=== PATIENT | male | born 1945 | race Caucasian/White ===

== ENCOUNTER → 2023-10-26 | Emergency (ER) | payer OTHER ==
[~2023-10-26] MED LIST: CYCLOBENZAPRINE 10 MG TAB ONE; HYDROCODONE/APAP 10/325 TAB ONE; HYDROCODONE/APAP 5/325 MG TAB ONE
--- OUTSIDE RECORDS SUMMARY | 2023-10-26 06:05 | XMS REPORT | Continuity of Care Document ---
Author Name Unknown Address [address] [place] [address] th[address] Address [address] [place] [address] 1 495 [place] [address] Care Team Providers Care Solar Sales Representative Name Role Phone TONEY ODOM Attending Clinician Unavailab le Encounters Start Date/Time End Date/Time Encounter Type Admission Type Attending Clinicians Care Facility Care Department Encounter ID Source 2023-10-19 11:39:56 2023-10-19 11:39:56 Outpatient [facility] [id number] Keaton Yoder 2023-10-11 16:00:00 2023-10-11 16:00:00 Outpatient TONEY ODOM [id number] Imelda Jaramillo Results Test Description Test Time Test Comments Results Result Co mments Source CULTURE, [id number] 08:37:20SPECIMEN NUMBER: [id number] CULTURE, URINE SPECIMEN NUMBER: [id number] SPECIMEN COMMENT: URINE SOURCE: URINE REPORT STATUS: FINAL FINAL REPORT: 10/21/2023 NO GROWTH AFTER 36 HOURS INCUBATIONPSA, TOTAL 2023-10-21 01:15:54* Test Item Value Reference Range Interpretation Comme nts PSA, TOTAL (test code = 2606) 2.14 NG/ML <=4.00 NOTE: Methodolog y is Foster Abbie Electrochemiluminescence Immunoassay traceable to WHO reference standard 96/760. UNLESS OTHERWISE INDICATED, ALL TESTING PERFORMED AT [facility] [address] [place] [id number] COUNTER INSTALLER: ALEJA SWEET M.D. CLIA NUMBER [id number] [place]. [id number] TSH, THIRD [id number] 01:15:54* Test Item Value Reference Range Interpretation Comme nts TSH, THIRD GENERATION (test code = 2821) 0.195 UIU/ML 0.400-4.100 L VITAMIN D, 25 [id number] 01:14:40* Test Item Value Reference Range Interpretation Comme nts VITAMIN D, 25 OH (test code = 4958) 26 NG/ML SEE BELOW L EFFECTIVE 2022, PLEASE NOTE NEW METHODOLOGY IS ELECTROCHEMILUMINESCENCE BINDING ASSAY. NOTE: 25-HYDROXYVITAMIN D ASSAY INCLUDES 25-HYDROXYVITAMIN D2 AND D3. INTERPRETIVE RANGES PEDIATRIC (<17 YEARS) . . . . . . . . . . . NG/ML 20-100ADULT: INSUFFICIENT . . . . . . . . . . . . . . NG/ML <20 SUBOPTIMAL . . . . . . . . . . . . . . . NG/ML 20-29 OPTIMAL . . . . . . . . . . . . . . . . . NG/ML 30-100 COMPREHENSIVE METABOLIC [id number] 01:02:57* Test Item Value Reference Range Interpretation Comme nts GLUCOSE (test code = 2216) 105 MG/DL 70-99 H BUN (test code = 2207) 12 MG/DL 8-23 CREATININE (test code = 2214) 0.55 MG/DL 0.80-1.40 L eGFR (2020 CKD-EPI) (test code = 85516) 100 ML/MIN/1.73 >60 CALC BUN/CREAT (test code = 2235) 22 RATIO 6-28 SODIUM (test code = 223) 143 MEQ/L 133-146 POTASSIUM (test code = 2228) 4.7 MEQ/L 3.5-5.4 CHLORIDE (test code = 2215) 101 MEQ/L 95-107 CARBON DIOXIDE (test code = 2206) 29 MEQ/L 19-31 CALCIUM (test code = 2209) 9.8 MG/DL 8.5-10.5 PROTEIN, TOTAL (test code = 2228) 7.3 G/DL 6.1-8.3 ALBUMIN (test code = 1) 4.3 G/DL 3.5-5.2 CALC GLOBULIN (test code = 2240) 3.0 G/DL 1.9-3.7 CALC A/G RATIO (test code = 223) 1.4 RATIO 1.0-2.6 BILIRUBIN, TOTAL (test code = 2206) 0.7 MG/DL <=1.2 ALKALINE PHOSPHATASE (test code = 2204) 62 U/L 40-125 AST (test code = 2218) 16 U/L 9-50 ALT (test code = 2219) 18 U/L 5-50 LIPID [id number] 01:02:57* Test Item Value Reference Range Interpretation Comme nts CHOLESTEROL (test code = 2210) 160 MG/DL <200 TRIGLYCERIDES (test code = 2232) 123 MG/DL <150 HDL CHOLESTEROL (test code = 2220) 51 MG/DL >39 CALC LDL CHOL (test code = 2237) 87 MG/DL <100 NOTE: CALCULATED LDL IS BASED ON VAHE-JENSEN METHOD WHICHINCLUDES ADJUSTABLE TRIGLYCERIDE:VLDL CHOLESTEROL RATIO.THIS FACTOR VARIES BY MEASURED TRIGLYCERIDE AND NON-HDLCHOLESTEROL CONCENTRATIONS WITH INCREASED CALCULATED LDL SEENIN HIGHER TRIGLYCERIDE OR LOWER NON-HDL SPECIMENS. FOR MOREINFORMATION, SEE CLIENT ANNOUNCEMENT AT [email or web address] RATIO LDL/HDL (test code = 2238) 1.71 RATIO <3.55 CBC W/AUTO DIFF WITH [id number] 10:26:31* Test Item Value Reference Range Interpretation Comme nts WBC (test code = 1001) 6.9 K/UL 3.5-11.0 RBC (test code = 1002) 4.64 M/UL 4.50-6.10 HEMOGLOBIN (test code = 1003) 14.7 G/DL 13.5-17.0 HEMATOCRIT (test code = 1004) 44.9 % 40.0-51.0 MCV (test code = 1005) 96.8 fL 80.0-99.0 MCH (test code = 1006) 31.7 PG 25.0-33.0 MCHC (test code = 1007) 32.7 G/DL 31.0-36.0 RDW (test code = 1038) 12.7 % 11.5-15.0 NEUTROPHILS (test code = 1008) 71.1 % LYMPHOCYTES (test code = 1010) 18.8 % MONOCYTES (test code = 1011) 6.6 % EOSINOPHILS (test code = 1012) 2.2 % BASOPHILS (test code = 1013) 1.0 % IMMATURE GRANULOCYTES (test code = 1036) 0.3 % NUCLEATED RBCS (test code = 1065) 0.0 /100 WBC'S See_Comment [Automated Oversia ge] The system which generated this result transmitted reference range: 0.0. The reference range was not used to interpret this result as normal/abnormal. PLATELET COUNT (test code = 1015) 205 K/UL 130-400 ABSOLUTE NEUTROPHILS (test code = 1066) 4.89 K/UL 1.50-7.50 ABSOLUTE LYMPHOCYTES (test code = 1067) 1.29 K/UL 1.00-4.00 ABSOLUTE MONOCYTES (test code = 1068) 0.45 K/UL 0.20-1.00 ABSOLUTE EOSINOPHILS (test code = 1040) 0.15 K/UL 0.00-0.50 ABSOLUTE BASOPHILS (test code = 1069) 0.07 K/UL 0.00-0.20 ABS IMMATURE GRANULOCYTES (test code = 1020) 0.02 K/UL 0.00-0.10 ABS NUCLEATED RBCS (test code = 82260) 0.00 K/UL 0.00-0.11
[2023-10-26 07:11] LABS: Absolute Lymphocytes (CBC) 1.5 K/uL (0.7-4.9); Hematocrit 41.3 % (39.6-49.0); Lymphocytes % 20.4 % (15.3-44.8); MCV 97.4 fL (80-100); MPV 9.4 fL (7.6-11.3); Platelets 188 thou/uL (152-406); RBC Red Blood Cell Count 4.24 M/uL (4.33-5.43)
[2023-10-26 07:24] LABS: Specific Gravity > 1.030 (1.005-1.030); Urine Bacteria <20 /HPF (<20); Urine Bilirubin NEGATIVE (Negative); Urine Blood Negative (Negative); Urine Clarity Clear (Clear); Urine Color Yellow (Yellow); Urine Glucose NEGATIVE (Negative); Urine Mucus 4+ /HPF (None Seen); Urine Protein 1+ (Negative); Urine RBC <5 /HPF (None Seen); Urine Urobilinogen 1+ (Normal); Urine pH 5.5 (5.0-7.0)
--- NOTE | 2023-10-26 08:20 | RAD REPORT ---
EXAM DESCRIPTION: CT - Abdomen Pelvis Wo Contrast - 10/26/2023 7:31 am CLINICAL HISTORY: Abdominal pain. back pain COMPARISON: No comparisons TECHNIQUE: CT imaging of the abdomen and pelvis was performed without contrast. Solid organ, bowel a nd vascular assessment is limited due to lack of IV and oral contrast. All CT scans are performed using dose optimization technique as appropriate and may include automated exposure control or mA/KV adjustment according to patient size. FINDINGS: The lower lung friend are clear.Small hiatal hernia. The liver, spleen, pancreas, adrenal glands and kidneys are within normal limits for a limited non-co ntrast examination. No bowel obstruction, free air, free fluid or abscess. Moderate stool is present throughout the colon . The appendix is not identified as a discrete structure, however, no secondary findings of appendici tis are identified. Small fat containing umbilical hernia. Moderate lumbar degenerative changes are present. 6 mm degenerative anterolisthesis of L4 on 5 is pre sent. IMPRESSION: No acute intra-abdominal or pelvic findings. Moderate multilevel lumbar degenerative changes. A limited non-contrast examination was performed as detailed.
[2023-10-26 10:21] LABS: Albumin 3.4 g/dL (3.4-5.0); Bilirubin Total 0.6 mg/dL (0.2-1.0); Potassium 4.1 mEq/L (3.5-5.1); Protein, Total 7.3 g/dL (6.4-8.2)
--- NOTE | 2023-10-26 10:33 | ER ---
Nurse's Notes [facility] Name: Ham Bull Age: 78 yrs Sex: Male : 1945 Arrival Date: 10/26/2023 Time: 06:02 Bed 14 Private MD: Diagnosis: Low back pain Presentation: 10/26 06:20 Chief complaint: Patient states: left lower back pain of 10, worse when laying,onset pf1 this AM. Patient denies any back injury. 06:20 Coronavirus screen: Vaccine status: Patient reports receiving the 2nd dose of the covid pf1 vaccine. Client denies travel out of the [place] in the last 14 days. At this time, the client does not indicate any symptoms associated with coronavirus-19. Ebola Screen: Patient negative for fever greater than or equal to 101.5 degrees Fahrenheit, and additional compatible Ebola Virus Disease symptoms. Initial Sepsis Screen: Does the patient meet any 2 criteria? No. Patient's initial sepsis screen is negative. Does the patient have a suspected source of infection? No. Patient's initial sepsis screen is negative. Risk Assessment: Do you want to hurt yourself or someone else? Patient reports no desire to harm self or others. 06:20 Method Of Arrival: Wheelchair pf1 06:20 Acuity: SHERRY 3 pf1 Historical: - Allergies: 06:35 No Known Allergies; pf1 - PMHx: 06:35 Hypertensive disorder; Atrial fibrillation; Arthritis; back pain; pf1 - PSHx: 06:35 left shoulder; pf1 - Immunization history:: Adult Immunizations up to date, Client reports receiving the 2nd dose of the Covid vaccine, Moderna Last tetanus immunization: < 5 years ago Flu vaccine is not up to date. - Social history:: Smoking status: Patient denies any tobacco usage or history of. Patient/guardian denies using alcohol, street drugs. - Family history:: not pertinent. Screenin:59 [facility] ED Fall Risk Assessment (Adult) History of falling in the last 3 months, nw1 including since admission No falls in past 3 months (0 pts) Confusion or Disorientation No (0 pts) Intoxicated or Sedated No (0 pts) Impaired Gait No (0 pts) Mobility Assist Device Used No (0 pt) Altered Elimination No (0 pt) Score/Fall Risk Level 0 - 2 = Low Risk Oriented to surroundings, Maintained a safe environment, Educated pt \\T\\ family on fall prevention, incl call for assistance when getting out of bed, Assessed \\T\\ reinforced patient's understanding of fall precautions, Provided non-skid footwear, Hourly rounding (assess needs \\T\\ fall precautionary measures) done, Used ambulatory aids as needed (educated on \\T\\ assisted with). Abuse screen: Denies threats or abuse. Denies injuries from another. Nutritional screening: No deficits noted. Tuberculosis screening: No symptoms or risk factors identified. Assessment: 06:59 Reassessment: Pt states lower left back pain since this morning. Pt states that he has nw1 chronic pain and was told that he needs an MRI, but this morning the pain was unbearable. Pain is relieved by positioning. Pt currently in chair in room. General: Appears in no apparent distress. uncomfortable, Behavior is calm, cooperative, appropriate for age. Pain: Complains of pain in left low back. Neuro: Level of Consciousness is awake, alert, obeys commands, Oriented to person, place, time, situation, Appropriate for age. Cardiovascular: Reports None. Respiratory: No deficits noted. Airway is patent Trachea midline Respiratory effort is even, unlabored, Respiratory pattern is regular, symmetrical. GI:. : Urine is joanie. Derm: No deficits noted. No signs and/or symptoms reported regarding the dermatologic system. Musculoskeletal: No signs and/or symptoms reported regarding the musculoskeletal system. Reports pain in left low back since "this morning". 07:05 Reassessment: Patient appears in no apparent distress at this time. Patient and/or db family updated on plan of care and expected duration. Pain level reassessed. Patient is alert, oriented x 3, equal unlabored respirations, skin warm/dry/pink. SITTING IN CHAIR AT SHIFT CHANGE IN NAD. STATES BED HURTS BACK MORE. General: Appears in no apparent distress. comfortable, Behavior is calm, cooperative. 08:00 Reassessment: Patient appears in no apparent distress at this time. Patient and/or db family updated on plan of care and expected duration. Pain level reassessed. Patient is alert, oriented x 3, equal unlabored respirations, skin warm/dry/pink. 09:00 Reassessment: Patient appears in no apparent distress at this time. Patient and/or db family updated on plan of care and expected duration. Pain level reassessed. Patient is alert, oriented x 3, equal unlabored respirations, skin warm/dry/pink. 10:00 Reassessment: Patient appears in no apparent distress at this time. Patient and/or db family updated on plan of care and expected duration. Pain level reassessed. Patient is alert, oriented x 3, equal unlabored respirations, skin warm/dry/pink. 11:54 Reassessment: Patient appears in no apparent distress at this time. Patient and/or db family updated on plan of care and expected duration. Pain level reassessed. Patient is alert, oriented x 3, equal unlabored respirations, skin warm/dry/pink. Vital Signs: 06:20 BP 120 / 86; Pulse 72; Resp 16; Temp 98.4; Pulse Ox 97% on R/A; Weight 111.13 kg; pf1 Height 5 ft. 6 in. ; Pain 10/10; 06:59 BP 114 / 67; Pulse 70; Resp 18; Pulse Ox 94% on R/A; nw1 07:15 BP 121 / 73; Pulse 68; Resp 18; Pulse Ox 98% on R/A; db 09:57 Pulse 72; Resp 16; Pulse Ox 93% ; mb4 10:29 BP 121 / 73 LA Standing (auto/); Pulse 72; Resp 16 S; Pulse Ox 94% ; mb4 11:15 BP 128 / 68; Pulse 63; Resp 18; Pulse Ox 97% on R/A; db 06:20 Body Mass Index 39.54 (111.13 kg, 167.64 cm) pf1 06:20 Pain Scale: Adult pf1 Mike Coma Score: 06:59 Eye Response: spontaneous(4). Motor Response: obeys commands(6). Verbal Response: nw1 oriented(5). Total: 15. ED Course: 06:14 Patient arrived in ED. gm2 06:16 Pedro Vasquez MD is Attending Physician. rt 06:35 Triage completed. pf1 06:37 Rubi Dobson, JT is Primary Nurse. nw1 06:59 Bed in low position. Call light in reach. Side rails up X2. Provided Education on: POC. nw1 Door closed. 06:59 Pulse ox on. NIBP on. nw1 06:59 No provider procedures requiring assistance completed. Inserted saline lock: 20 gauge nw1 in right wrist, using aseptic technique. Blood collected. 07:05 CMP Sent. nw1 07:05 CBC with Diff Sent. nw1 07:05 [facility] Sent. nw1 07:13 Attending Physician role handed off by Pedro Vasquez MD ec2 07:13 Stef West MD is Attending Physician. ec2 07:33 CT Abd/Pelvis - Without Contrast In Process Unspecified. EDMS 07:57 Lab(s) recollected, by me, sent to lab. mb4 09:40 Lab(s) recollected, by me, sent to lab. mb4 11:50 Patient did not have IV access during this emergency room visit. db Administered Medications: 07:09 Drug: Cyclobenzaprine PO 10 mg PO once Route: PO; nw1 11:56 Follow up: Response: No adverse reaction db 07:09 Drug: [place] PO 10 mg-325 mg 1 tabs PO once Route: PO; nw1 11:56 Follow up: Response: No adverse reaction db 11:32 Drug: HYDROcodone-acetaminophen PO 5 mg-325 mg 2 tabs PO once Route: PO; db 11:56 Follow up: Response: No adverse reaction db Medication: 06:59 VIS not applicable for this client. nw1 Outcome: 10:32 Discharge ordered by . ec2 11:50 Discharged to home via wheelchair, with family, db 11:50 Condition: stable 11:50 Discharge instructions given to patient, Instructed on discharge instructions, follow up and referral plans. Prescriptions given X 1, 11:57 Patient left the ED. db Signatures: Dispatcher [employer] EDSherin Naranjo mb4 Laure Richards, JT RN db Pedro Vasquez MD MD rt Fanny Melgar RN RN pf1 Stef West MD MD ec2 Zuly Quan 2 Rubi Dobson, JT RN nw1 Corrections: (The following items were deleted from the chart) 07:04 06:59 Client placed on continuous cardiac and pulse oximetry monitoring. NIBP nw1 monitoring applied. equipment monitor phototypesetting on. nw1
--- NOTE | 2023-10-26 10:33 | EDPHYS ---
Physician Documentation [facility] Name: Ham Bull Age: 78 yrs Sex: Male : 1945 Arrival Date: 10/26/2023 Time: 06:02 Bed 14 Private MD: ED Physician Stef West HPI: 10/26 07:05 This 78 yrs old Male presents to ER via Wheelchair with complaints of Low Back Pain. rt 07:05 Patient presents to the ED with about 3 days of a left lower back pain. It is not rt radiating. It is worse when he lies down flat. Patient denies discrete injury. States that the symptoms have worsened overnight. Denies other acute complaints, symptoms are moderate in severity, no other aggravating elevating factors.. Historical: - Allergies: 06:35 No Known Allergies; pf1 - PMHx: 06:35 Hypertensive disorder; Atrial fibrillation; Arthritis; back pain; pf1 - PSHx: 06:35 left shoulder; pf1 - Immunization history:: Adult Immunizations up to date, Client reports receiving the 2nd dose of the Covid vaccine, Moderna Last tetanus immunization: < 5 years ago Flu vaccine is not up to date. - Social history:: Smoking status: Patient denies any tobacco usage or history of. Patient/guardian denies using alcohol, street drugs. - Family history:: not pertinent. ROS: 07:05 Constitutional: Negative for fever, chills, and weight loss, Cardiovascular: Negative rt for chest pain, palpitations, and edema, Respiratory: Negative for shortness of breath, cough, wheezing, and pleuritic chest pain, Abdomen/GI: Negative for abdominal pain, nausea, vomiting, diarrhea, and constipation, MS/Extremity: Negative for injury and deformity, Skin: Negative for injury, rash, and discoloration, Neuro: Negative for headache, weakness, numbness, tingling, and seizure, 07:05 Back: Positive for decreased range of motion, pain at rest, Exam: 07:05 Constitutional: This is a well developed, well nourished patient who is awake, alert, rt and in no acute distress. Head/Face: Normocephalic, atraumatic. Chest/axilla: Normal chest wall appearance and motion. Nontender with no deformity. No lesions are appreciated. Cardiovascular: Regular rate and rhythm with a normal S1 and S2. No gallops, murmurs, or rubs. Normal PMI, no JVD. No pulse deficits. Respiratory: Lungs have equal breath sounds bilaterally, clear to auscultation and percussion. No rales, rhonchi or wheezes noted. No increased work of breathing, no retractions or nasal flaring. Abdomen/GI: Soft, non-tender, with normal bowel sounds. No distension or tympany. No guarding or rebound. No evidence of tenderness throughout. Skin: Warm, dry with normal turgor. Normal color with no rashes, no lesions, and no evidence of cellulitis. MS/ Extremity: Pulses equal, no cyanosis. Neurovascular intact. Full, normal range of motion. Neuro: Awake and alert, GCS 15, oriented to person, place, time, and situation. Cranial nerves II-XII grossly intact. Motor strength 5/5 in all extremities. Sensory grossly intact. Cerebellar exam normal. Normal gait. Psych: Awake, alert, with orientation to person, place and time. Behavior, mood, and affect are within normal limits. 07:05 Back: Tenderness to the left lower lumbar region, no midline tenderness, no step-offs, no costovertebral angle tenderness, Vital Signs: 06:20 BP 120 / 86; Pulse 72; Resp 16; Temp 98.4; Pulse Ox 97% on R/A; Weight 111.13 kg; pf1 Height 5 ft. 6 in. ; Pain 10/10; 06:59 BP 114 / 67; Pulse 70; Resp 18; Pulse Ox 94% on R/A; nw1 07:15 BP 121 / 73; Pulse 68; Resp 18; Pulse Ox 98% on R/A; db 09:57 Pulse 72; Resp 16; Pulse Ox 93% ; mb4 10:29 BP 121 / 73 LA Standing (auto/); Pulse 72; Resp 16 S; Pulse Ox 94% ; mb4 11:15 BP 128 / 68; Pulse 63; Resp 18; Pulse Ox 97% on R/A; db 06:20 Body Mass Index 39.54 (111.13 kg, 167.64 cm) pf1 06:20 Pain Scale: Adult pf1 [place] Coma Score: 06:59 Eye Response: spontaneous(4). Motor Response: obeys commands(6). Verbal Response: nw1 oriented(5). Total: 15. MDM: 06:26 Patient medically screened. rt 07:26 Data reviewed: vital signs. ec2 07:27 ED course: Patient's imaging was reviewed physician, in brief patient arrives today for ec2 low back pain, plan is to follow-up lab work and CT imaging. Currently considering MSK pain versus ureteral stone. Patient given Flexeril as well as [place] for pain management. Urine is pertinent for trace ketones, no blood present. CBC is reassuring. Pending metabolic profile and CT imaging.. 08:25 ED course: CT imaging shows no acute intra-abdominal process, shows degenerative ec2 changes.. 10:28 ED course: Metabolic profile is reassuring. Will discharge home with scheduled her back ec2 pain and have him follow-up with a primary care doctor. Return precautions given.. 10/26 06:38 Order name: [facility]; Complete Time: 07:27 rt 10/26 06:38 Order name: CBC with Diff; Complete Time: 07:13 rt 10/26 06:38 Order name: CMP; Complete Time: 10:27 rt 10/26 06:38 Order name: CT Abd/Pelvis - Without Contrast; Complete Time: 08:25 rt 10/26 07:30 Order name: Labs - recollect needed: recollect green top; Complete Time: 08:17 eb 10/26 08:37 Order name: Labs - recollect needed: recollect the recollect/ per Champ hemolyzed; eb Complete Time: 10:00 Administered Medications: 07:09 Drug: Cyclobenzaprine PO 10 mg PO once Route: PO; nw1 11:56 Follow up: Response: No adverse reaction db 07:09 Drug: [place] PO 10 mg-325 mg 1 tabs PO once Route: PO; nw1 11:56 Follow up: Response: No adverse reaction db 11:32 Drug: HYDROcodone-acetaminophen PO 5 mg-325 mg 2 tabs PO once Route: PO; db 11:56 Follow up: Response: No adverse reaction db Disposition Summary: 10/26/23 10:32 Discharge Ordered Notes: Location: Home ec2 Condition: Stable ec2 Diagnosis - Low back pain ec2 Followup: ec2 - With: Private Physician - When: - Reason: Recheck today's complaints Discharge Instructions: - Discharge Summary Sheet ec2 - Acute Back Pain, Adult ec2 Forms: - Medication Reconciliation Form ec2 - Thank You Letter ec2 - Antibiotic Education ec2 - Prescription Opioid Use ec2 - Patient Portal Instructions ec2 - Leadership Thank You Letter ec2 Prescriptions: - acetaminophen-codeine 300-15 mg Oral tablet - take 1 tablet ORAL route every 6 hours as needed for pain; 15 tablet; Refills: ec2 0, Product Selection Permitted Signatures: Dispatcher [employer] EDKatie Thakkar Danielle, RN RN db Pedro Vasquez MD MD rt Fanny Melgar RN RN pf1 Stef West MD MD ec2 Rubi Dobson RN RN nw1
[2023-10-26 13:10] VITALS: TEMP 98.4
[2023-10-26 13:21] VITALS: BP 128/68; O2SAT 97
== END ==
LOC: ER 06:02
DX: M54.50 Low back pain, unspecified (principal); I10 Essential (primary) hypertension
CPT/HCPCS: 36415; 74176; 80053; 81001; 85025; 99284

== ENCOUNTER 2024-04-06 15:35 | Inpatient (IN) | payer OTHER ==
[2024-04-06 17:27] LABS: Absolute Basophils 0.1 K/uL (0-0.5); Absolute Eosinophils 0.1 K/uL (0-0.5); Absolute Lymphocytes (CBC) 1.5 K/uL (0.7-4.9); Absolute Monocytes 0.6 K/uL (0.1-1.3); Absolute Neutrophil 4.7 K/uL (1.8-8.0); Eosinophils % 1.7 % (0-4.4); Hematocrit 43.6 % (39.6-49.0); Hemoglobin 13.9 g/dL (13.6-17.9); Lymphocytes % 21.4 % (15.3-44.8); MCH 32.5 pg (27.0-35.0); MCHC 31.9 g/dL (32.0-36.0); MCV 101.9 fL (80-100); MPV 9.4 fL (7.6-11.3); Monocytes % 8.1 % (3.3-12.3); Neutrophils % 67.8 % (41.7-73.7); Platelets 155 thou/uL (152-406); RBC Red Blood Cell Count 4.28 M/uL (4.33-5.43); Red Cell Distribution Width 15.5 % (12.1-15.2)
[2024-04-06 17:43] LABS: Anion Gap 5.4 mEq/L (5.0-15.0); Potassium 4.4 mEq/L (3.5-5.1)
[2024-04-06 17:54] LABS: Troponin High Sensitivity 62.9 pg/mL (<58.9)
--- NOTE | 2024-04-06 18:06 | ER ---
Nurse's Notes [facility] Name: Ham Bull Age: 78 yrs Sex: Male : 1945 Arrival Date: 04/06/2024 Time: 15:35 Bed 8 Private MD: Diagnosis: NSTEMI;Dyspnea, unspecified Presentation: 04/06 15:46 Chief complaint: Patient states: SOB x 2 days ago, pt also c/o nasal congestion. Pt aa5 denies cough. Coronavirus screen: shortness of breath. Ebola Screen: Patient denies travel to an Ebola-affected area in the 21 days before illness onset. Initial Sepsis Screen: Does the patient meet any 2 criteria? No. Patient's initial sepsis screen is negative. Does the patient have a suspected source of infection? No. Patient's initial sepsis screen is negative. Risk Assessment: Do you want to hurt yourself or someone else? Patient reports no desire to harm self or others. Onset of symptoms was March 2024. 15:46 Acuity: SHERRY 3 aa5 15:46 Method Of Arrival: Ambulatory aa5 Triage Assessment: 19:35 Respiratory: Onset: The symptoms/episode began/occurred. lc8 19:35 Respiratory: lc8 Historical: - Allergies: 15:46 No Known Allergies; aa5 - PMHx: 15:46 Arthritis; Atrial fibrillation; Back pain; Hypertensive disorder; aa5 - PSHx: 15:46 left shoulder; aa5 - Immunization history:: Adult Immunizations unknown. - Infectious Disease History:: Denies. - Social history:: Smoking status: Patient denies any tobacco usage or history of. Screenin:23 [facility] ED Fall Risk Assessment (Adult) History of falling in the last 3 months, ld1 including since admission No falls in past 3 months (0 pts). Abuse screen: Denies threats or abuse. Denies injuries from another. Nutritional screening: No deficits noted. Tuberculosis screening: No symptoms or risk factors identified. Assessment: 18:21 General: Appears in no apparent distress. comfortable, Behavior is calm, cooperative, ld1 appropriate for age. Pain: Denies pain. Neuro: Level of Consciousness is awake, alert, obeys commands, Oriented to person, place, time, situation. Cardiovascular: Capillary refill < 3 seconds Patient's skin is warm and dry. Rhythm is sinus bradycardia. Respiratory: Reports shortness of breath at rest on exertion Airway is patent Respiratory effort is even, labored. Respiratory: GI: Abdomen is round non-distended. : No signs and/or symptoms were reported regarding the genitourinary system. EENT: No signs and/or symptoms were reported regarding the EENT system. Derm: No signs and/or symptoms reported regarding the dermatologic system. Musculoskeletal: No signs and/or symptoms reported regarding the musculoskeletal system. 19:32 Reassessment: No changes from previously documented assessment. Patient and/or family lc8 updated on plan of care and expected duration. Pain level reassessed. 19:34 General: Appears comfortable, Behavior is calm, cooperative. Respiratory: Reports lc8 shortness of breath Airway is patent Respiratory effort is even, labored. GI: No deficits noted. Patient currently denies. : No signs and/or symptoms were reported regarding the genitourinary system. 20:30 Reassessment: No changes from previously documented assessment. Patient and/or family lc8 updated on plan of care and expected duration. Pain level reassessed. 21:30 Reassessment: No changes from previously documented assessment. Patient and/or family lc8 updated on plan of care and expected duration. Pain level reassessed. Vital Signs: 15:46 BP 156 / 94; Pulse 55; Resp 20 S; Temp 97.5; Pulse Ox 97% on R/A; Weight 113.4 kg (R); aa5 Height 5 ft. 6 in. (R); 18:21 BP 181 / 85; Pulse 55; Resp 22; Pulse Ox 92% on R/A; ld1 20:00 BP 172 / 69; Pulse 54; Resp 19; Pulse Ox 96% on 2 lpm NC; lc8 21:00 BP 128 / 59; Pulse 50; Pulse Ox 97% ; lc8 15:46 Body Mass Index 40.35 (113.40 kg, 167.64 cm) aa5 ED Course: 15:41 Patient arrived in ED. im 15:43 John Souza PA is PHCP. cp 15:46 Arm band placed on. aa5 15:47 Triage completed. aa5 15:51 Stef West MD is Attending Physician. ec2 15:51 EKG completed in triage. Results shown to MD. aa5 16:25 XRAY Chest (1 view) In Process Unspecified. EDMS 17:16 Basic Metabolic Panel Sent. bc6 17:16 CBC with Diff Sent. bc6 17:16 NT PRO-BNP Sent. bc6 17:16 Troponin HS Sent. bc6 17:16 Initial lab(s) drawn, by me, sent to lab. Inserted saline lock: 22 gauge in right bc6 antecubital area, using aseptic technique. Blood collected. 18:06 Ulises Self MD is Hospitalizing Provider. ec2 18:19 Tianna Saba, RN is Primary Nurse. ld1 18:23 Patient has correct armband on for positive identification. Placed in gown. Bed in low ld1 position. Call light in reach. Side rails up X2. potline monitor on. Pulse ox on. NIBP on. Door closed. Noise minimized. Warm blanket given. 18:23 No provider procedures requiring assistance completed. ld1 04/07 01:56 Provided Education on: admission. lc8 01:56 Patient admitted, IV remains in place. lc8 Administered Medications: 04/06 18:20 Drug: Aspirin PO Chewable Tablet 324 mg PO once; 81 mg tablets x 4 Route: PO; ld1 18:20 Drug: Enoxaparin Sub-Q 1 mg/kg Sub-Q once Route: Sub-Q; Site: right upper arm; ld1 Medication: 19:36 VIS not applicable for this client. lc8 Output: 20:00 Urine: 800ml (Voided); Total: 800ml. lc8 Outcome: 18:06 Decision to Hospitalize by Provider. ec2 04/07 01:56 Admitted to Med/surg accompanied by nurse, via wheelchair, room 215, lc8 Condition: stable Discharge instructions given to Instructed on the need for admit, 01:57 Patient left the ED. lc8 Signatures: Dispatcher [employer] EDMS Alicia Jack, RN RN aa5 John Souza PA PA cp Tianna Saba, JT RN ld1 Gill Ballard 6 Torie Sims Edwin, MD MD ec2 Renee Ross RN RN lc8
--- NOTE | 2024-04-06 18:07 | EDPHYS ---
Physician Documentation [facility] Name: Ham Bull Age: 78 yrs Sex: Male : 1945 Arrival Date: 04/06/2024 Time: 15:35 Bed 8 Private MD: ED Physician Stef West HPI: 04/06 15:55 This 78 yrs old Male presents to ER via Ambulatory with complaints of ec2 Shortness Of Breath. 15:55 Patient arrives today for evaluation of shortness of breath. Patient reports several ec2 days of shortness of breath is been progressively worse. Reports occasional cough, nonproductive, no fevers or chills, no nausea or vomiting. Does also complain of lower extremity edema bilaterally. Denies history of CHF, ACS. Reports history of atrial fibrillation, is on blood thinners.. Historical: - Allergies: 15:46 No Known Allergies; aa5 - PMHx: 15:46 Arthritis; Atrial fibrillation; Back pain; Hypertensive disorder; aa5 - PSHx: 15:46 left shoulder; aa5 - Immunization history:: Adult Immunizations unknown. - Infectious Disease History:: Denies. - Social history:: Smoking status: Patient denies any tobacco usage or history of. ROS: 15:55 Constitutional: as per hpi ec2 Exam: 15:55 Constitutional: GEN: NAD Head: atraumatic Eyes: EOMI Ears: External ears are ec2 normal. CV: regular rate, trace lower extremity edema LUNGS: no respiratory distress, no wheezes, rales, rhonchi ABD: non-distended SKIN: no evidence of rashes MSK: no evidence of trauma NEURO: moves all extremities equally Vital Signs: 15:46 BP 156 / 94; Pulse 55; Resp 20 S; Temp 97.5; Pulse Ox 97% on R/A; Weight 113.4 kg (R); aa5 Height 5 ft. 6 in. (R); 18:21 BP 181 / 85; Pulse 55; Resp 22; Pulse Ox 92% on R/A; ld1 20:00 BP 172 / 69; Pulse 54; Resp 19; Pulse Ox 96% on 2 lpm NC; lc8 21:00 BP 128 / 59; Pulse 50; Pulse Ox 97% ; lc8 15:46 Body Mass Index 40.35 (113.40 kg, 167.64 cm) aa5 MDM: 15:51 Patient medically screened. ec2 15:55 Data reviewed: vital signs. ED course: Patient arrives today for progressive shortness ec2 of breath. Examination remarkable for well-appearing nontoxic vigorous otherwise in no acute respiratory distress he does have trace lower extremity edema noted on physical examination. EKG obtained, independently reviewed and interpreted by me, shows normal sinus rhythm, rate of 48, no acute ST segment ovation's, intervals are nonactionable. Will obtain lab work, chest x-ray. Differential diagnosis includes ACS, volume overload, infection. . 18:05 ED course: Metabolic profile reassuring. CBC nonactionable, troponin is elevated at ec2 62.9. BNP within normal ranges at 97. Given the patient is having active shortness of breath with an elevated troponin, will admit the patient for an NSTEMI will give the patient aspirin, Lovenox and admit for further cardiac evaluation. Discussed case with the hospitalist, pending admission. . 18:06 ED course: MDM: Differential diagnosis as documented above in ED course; All lab tests ec2 ordered and reviewed as documented above; Independent interpretation of tests: EKG as above; External records reviewed: Previous ED visit Discuss inpatient hospitalization: Yes; I discussed the case with: Hospitalist . 04/06 15:55 Order name: Basic Metabolic Panel; Complete Time: 18:04 ec2 04/06 15:55 Order name: CBC with Diff; Complete Time: 18:04 ec2 04/06 15:55 Order name: NT PRO-BNP; Complete Time: 18:04 ec2 04/06 15:55 Order name: Troponin HS; Complete Time: 18:04 ec2 04/06 18:52 Order name: Urinalysis w/ reflexes EDPA 04/06 18:52 Order name: CBC with Automated Diff EDMS 04/06 18:52 Order name: CBC with Automated Diff; Complete Time: 06:39 EDMS 04/06 18:52 Order name: Comprehensive Metabolic Panel EDPA 04/06 18:52 Order name: Comprehensive Metabolic Panel; Complete Time: 06:39 EDMS 04/06 18:52 Order name: Troponin High Sensitivity EDMS 04/06 18:52 Order name: Troponin High Sensitivity; Complete Time: 06:39 EDMS 04/06 18:52 Order name: Troponin High Sensitivity; Complete Time: 06:39 EDMS 04/06 18:52 Order name: Troponin High Sensitivity EDMS 04/06 15:55 Order name: XRAY Chest (1 view); Complete Time: 06:39 ec2 04/06 18:53 Order name: Echo with Doppler EDMS 04/06 15:55 Order name: EKG; Complete Time: 15:56 ec2 04/06 18:52 Order name: CONS Physician Consult EDMS 04/06 15:55 Order name: Cardiac monitoring; Complete Time: 18:20 ec2 04/06 15:55 Order name: EKG - Nurse/Tech; Complete Time: 16:28 ec2 04/06 15:55 Order name: IV Saline Lock; Complete Time: 17:16 ec2 04/06 15:55 Order name: Labs collected and sent; Complete Time: 17:16 ec2 04/06 15:55 Order name: O2 Per Protocol; Complete Time: 18:13 ec2 04/06 15:55 Order name: O2 Sat Monitoring; Complete Time: 18:13 ec2 Administered Medications: 18:20 Drug: Aspirin PO Chewable Tablet 324 mg PO once; 81 mg tablets x 4 Route: PO; ld1 18:20 Drug: Enoxaparin Sub-Q 1 mg/kg Sub-Q once Route: Sub-Q; Site: right upper arm; ld1 Disposition Summary: 04/06/24 18:06 Hospitalization Ordered Notes: Hospitalization Status: Inpatient Admission ec2 Provider: Ulises Self ec2 Location: Telemetry/MedSurg (Inpatient) ec2 Condition: Stable ec2 Problem: new ec2 Symptoms: have improved ec2 Bed/Room Type: Standard ec2 Room Assignment: 215(04/07/24 00:11) Diagnosis - NSTEMI ec2 - Dyspnea, unspecified ec2 Forms: - Medication Reconciliation Form ec2 - SBAR form ec2 - Leadership Thank You Letter ec2 Signatures: Dispatcher [employer] Ciara Davis RN RN kl Calderon, Audri, RN RN aa5 Alexandre Campbell, REFINERY OPERATOR REFORMING UNIT-C REFINERY OPERATOR REFORMING UNIT-Cla1 Tianna Saba RN RN ld1 Stef West MD MD ec2 Corrections: (The following items were deleted from the chart) 15:56 15:56 BASIC METABOLIC PANEL+C.LAB.BRZ ordered. EDMS EDMS 15:56 15:56 CBC+H.LAB.BRZ ordered. EDMS EDMS 15:56 15:56 PROBNP+C.LAB.BRZ ordered. EDMS EDMS 15:56 15:56 Troponin High Sensitivity+C.LAB.BRZ ordered. EDMS EDMS 04/07 00:11 04/06 18:06 ec2 kl
[2024-04-06] MEDS ORDERED: ASPIRIN 81 MG CHEWABLE TABLET ONE (18:15)
[2024-04-06] MEDS ORDERED: ENOXAPARIN 100 MG/ML SYR SQ ONE (18:15)
[2024-04-06] MEDS ORDERED: ONDANSETRON 4 MG/2 ML VIAL IV PRN (18:47)
--- NOTE | 2024-04-06 18:47 | P.HP ---
Certification for Inpatient Patient admitted to: Observation With expected LOS: <2 Midnights Practitioner: I am a practitioner with admitting privileges, knowledge of patient current condition, hospital course, and medical plan of care. Services: Services provided to patient in accordance with Admission requirements found in Title 42 Section 412.3 of the Code of Federal Regulations Patient History Date of Service: 04/06/24 Reason for admission: SOB History of Present Illness: 78 yrs old Male with past medical history of hypertension, hyperlipidemia, arthritis, atrial fibrillation, back pain, came in with shortness of breath which started 2 days ago and has been progressively getting worse associated with occasional cough which is nonproductive. Denies any fever or chills. Also complains of some lower extremity swelling. Denies any chest pain. Has shortness of breath even with minimal exertion. Denies any history of CAD or CHF. He had a history of atrial fibrillation status post cardioversion and is on blood thinners. Patient was assessed in the ER and is being admitted for further management . Allergies No Known Allergies Allergy (Unverified 04/06/24 19:11) Home medications list reviewed: Yes - Past Medical/Surgical History Past Medical History: Reviewed- Non-Contributory -: Hypertension -: Atrial fibrillation -: Arthritis Past Surgical History: Reviewed- Non-Contributory -: Status post cardioversion - Family History Family History: Reviewed- Non-Contributory - Social History Smoking Status: Never smoker Review of Systems 10-point ROS is otherwise unremarkable Physical Examination - Vital Signs Temperature: 97.8 F Blood Pressure: 190/65 Pulse: 55 Respirations: 18 Pulse Ox (%): 94 - Physical Exam General: Alert, Oriented x3, Mild distress HEENT: Atraumatic, Normocephalic Neck: Supple, 2+ carotid pulse no bruit Respiratory: Clear to auscultation bilaterally, Crackles/rales Cardiovascular: Normal pulses, Regular rate/rhythm Gastrointestinal: Soft and benign, W/out hepatosplenomegaly Musculoskeletal: No clubbing, No swelling Integumentary: No rashes, No tenderness/swelling Neurological: Normal speech, Normal strength at 5/5 x4 extr, Cranial nerves 3-12 intact, Normal reflexes 2+ Lymphatics: No axilla or inguinal lymphadenopathy - Studies Laboratory Data (last 24 hrs) 04/06/24 04/06/24 17:15 17:15 WBC 6.90 Hgb 13.9 Hct 43.6 Plt Count 155 Sodium 138 Potassium 4.4 BUN 18 Creatinine 0.62 L Glucose 110 H Assessment and Plan - Problems (Diagnosis) (1) Acute exacerbation of CHF (congestive heart failure) Current Visit: Yes Status: Acute Plan: Acute on chronic CHF possibly systolic/diastolic Monitor closely on telemetry Started on aggressive diuresis X-ray findings consistent with CHF Oxygen supplementation Will try to wean down oxygen requirement Will obtain an echocardiogram Cardiology consult NSTEMI Will trend cardiac enzymes Will monitor telemetry Started on aspirin and statin EKG did not show any acute changes suggestive of ischemia Patient denies any chest pain Will get an echocardiogram Cardiology consult Accelerated Hypertension Antihypertensives titrated Continue home medications and titrate as needed Hydralazine as needed History of atrial fibrillation Status post cardioversion a year ago Monitor closely on telemetry Continue home medications Hyperlipidemia Continue statin GI/DVT prophylaxis Advanced directive full code Discharge Plan: Home Plan to discharge in: 48 Hours - Advance Directives Does patient have a Living Will: No Does patient have a Durable POA for Healthcare: No - Code Status/Comfort Care Code Status: Full Code Time Spent Managing Pts Care (In Minutes): 48
--- NOTE | 2024-04-06 18:49 | RAD REPORT ---
EXAM DESCRIPTION: Segundot Single View04/06/2024 4:23 pm CLINICAL HISTORY: DYSPNEA COMPARISON: Abdomen Pelvis Wo Contrast dated 10/26/2023 TECHNIQUE: Portable AP view of the chest. FINDINGS: The lungs are clear of focal opacities. Central interstitial prominence noted. No pneumot horax or effusion, although superimposition of soft tissues may contribute to subjective appearance o f costophrenic angle blunting. The heart is mildly enlarged. Thoracic aorta is tortuous. IMPRESSION: Central interstitial prominence which may reflect chronic interstitial changes or mild c entral congestion
[2024-04-06] MEDS: FUROSEMIDE 40 MG/4 ML VIAL IV SCH (18:51)
[2024-04-06] MEDS ORDERED: FUROSEMIDE 40 MG/4 ML VIAL ONE (19:21)
[2024-04-07 02:39] VITALS: BMI 41.5
[2024-04-07] MEDS: ACETAMINOPHEN 325 MG TABLET PO PRN (03:39)
[2024-04-07 05:48] LABS: Absolute Eosinophils 0.1 K/uL (0-0.5); Absolute Lymphocytes (CBC) 1.5 K/uL (0.7-4.9); Absolute Monocytes 0.6 K/uL (0.1-1.3); Absolute Neutrophil 5.3 K/uL (1.8-8.0); Basophils % 0.6 % (0-1.3); Eosinophils % 1.3 % (0-4.4); Hematocrit 39.7 % (39.6-49.0); Hemoglobin 13.4 g/dL (13.6-17.9); Lymphocytes % 19.7 % (15.3-44.8); MCH 33.8 pg (27.0-35.0); MCHC 33.9 g/dL (32.0-36.0); MCV 99.7 fL (80-100); MPV 9.5 fL (7.6-11.3); Monocytes % 8.4 % (3.3-12.3); Nucleated Red Blood Cells % 0.1 % (0-0); Platelets 157 thou/uL (152-406); RBC Red Blood Cell Count 3.98 M/uL (4.33-5.43); Red Cell Distribution Width 14.8 % (12.1-15.2)
[2024-04-07 06:08] LABS: ALT/SGPT 27 U/L (16-61); Albumin 3.3 g/dL (3.4-5.0); Alkaline Phosphatase 49 U/L (45-117); Anion Gap 5.4 mEq/L (5.0-15.0); BUN Blood Urea Nitrogen 17 mg/dL (7-18); Bicarbonate 38 mEq/L (21-32); Bilirubin Total 0.7 mg/dL (0.2-1.0); Globulin 3.4 g/dL (2.3-3.5); Glomerular Filtration Rate 96 ml/min (=/>90); Glucose Level 99 mg/dL (74-106); Potassium 4.4 mEq/L (3.5-5.1); Protein, Total 6.7 g/dL (6.4-8.2); Sodium Level 138 mEq/L (136-145)
[2024-04-07 06:11] LABS: AST/SGOT < 10 U/L (15-37)
[2024-04-07] MEDS: ENOXAPARIN 40 MG/0.4 ML SQ SCH (09:20)
--- NOTE | 2024-04-07 10:06 | P.PN ---
Date of Service: 04/07/24 Subjective: Still with dyspnea on exertion denies chest pain No acute events overnight ROS: 10 point ROS as noted above, otherwise negative Physical exam GEN: Alert, oriented, NAD HEENT: Normal conjunctiva, sclera anicteric CV: Regular rate and rhythm, no edema Pulm: Nonlabored respirations on nasal cannula ABD: Soft, nontender, nondistended MSK: No joint tenderness Integumentary: No rashes Neuro: Normal speech, normal affect Vitals reviewed Assessment and plan Possible Acute on chronic CHF possibly systolic/diastolic Monitor closely on telemetry Started on aggressive diuresis-minimal edema today, will decrease lasix X-ray findings consistent with CHF Oxygen supplementation, wean as tolerated Will obtain an echocardiogram Cardiology consult NSTEMI Troponins flat Will monitor telemetry Started on aspirin and statin EKG did not show any acute changes suggestive of ischemia Patient denies any chest pain Will get an echocardiogram Cardiology consult Accelerated Hypertension Antihypertensives titrated Continue home medications and titrate as needed Hydralazine as needed History of atrial fibrillation Status post cardioversion a year ago Monitor closely on telemetry Continue eliquis Hyperlipidemia Continue statin VTE:Continue eliquis Code: Full Dispo: 24-48 hours Time Spent Managing Pts Care (In Minutes): 35
[2024-04-07] MEDS ORDERED: PNEUMOCOCCAL VACCINE 0.5 ML IMVAC ONE (12:00)
--- NOTE | 2024-04-07 12:12 | P.CNS ---
Date of Consult: 04/07/24 Chief Complaint: SOB History of Present Illness: Patient with PMH of atrial fibrillation s/p DCCV, also has history of heart failure, HTN, HLD presented with worsening SOB and bilateral lower extremities, denies having any other cardiac symptoms, no chest pain, no palpitations, no sy ncope. Allergies No Known Allergies Allergy (Unverified 04/06/24 19:11) - Past Medical/Surgical History Diabetic: No -: Hypertension -: Atrial fibrillation -: Arthritis -: Status post cardioversion - Social History Alcohol use: No CD- Drugs: No Caffeine use: No Place of Residence: Home Review of Systems 10-point ROS is otherwise unremarkable Physical Examination Temp Pulse Resp BP Pulse Ox 98.3 F 53 20 140/65 96 04/07/24 11:48 04/07/24 11:48 04/07/24 11:48 04/07/24 11:48 04/07/24 11:48 General: Alert, In no apparent distress HEENT: Atraumatic, PERRLA, Mucous membr. moist/pink, EOMI, Sclerae nonicteric Neck: Supple, 2+ carotid pulse no bruit, No LAD, Without JVD or thyroid abnormality Respiratory: Crackles/rales Cardiovascular: Regular rate/rhythm, Normal S1 S2, Edema Gastrointestinal: Normal bowel sounds, No tenderness Musculoskeletal: No tenderness Integumentary: No rashes Neurological: Normal gait, Normal speech, Normal tone, Normal affect Lymphatics: No axilla or inguinal lymphadenopathy Laboratory Data (last 24 hrs) 04/06/24 04/06/24 17:15 17:15 WBC 6.90 Hgb 13.9 Hct 43.6 Plt Count 155 Sodium 138 Potassium 4.4 BUN 18 Creatinine 0.62 L Glucose 110 H - Problems (1) Atrial fibrillation Current Visit: Yes Status: Acute Plan: Patient is currently in sinus bradycardia, Please check patient home medications and update chart. Continue Eliquis. (2) HTN (hypertension) Current Visit: Yes Status: Acute Plan: BP is with in normal limit, will need home medications list as patient follow up with cardiology at [facility]. (3) Acute exacerbation of CHF (congestive heart failure) Current Visit: Yes Status: Acute Plan: agree with IV duresis and monitoring input and output and monitoring electrolytes. (4) NSTEMI (non-ST elevated myocardial infarction) Current Visit: Yes Status: Acute Plan: NPO after midnight for lexiscan stress test in am.
--- NOTE | 2024-04-07 14:15 | EKG ---
Test Date: 2024-04-06 Test Time: 15:51:13 Director Medical Science: CHAPARRO MEASUREMENT RESULTS: Intervals: Rate: 48 MS: 252 QRSD: 88 QT: 448 QTc: 400 [place]: P: MS: 252 QRS: 21 T: 83 INTERPRETIVE STATEMENTS: Marked sinus bradycardia with sinus arrhythmia with 1st degree AV block Abnormal ECG No previous ECG available for comparison Electronically Signed On 04-07-24 14:12:33 CDT by Kayden Fields
[2024-04-07] MEDS: FUROSEMIDE 20 MG/ 2ML VIAL IV SCH (17:03)
[2024-04-07] MEDS: TAMSULOSIN 0.4 MG SR CAP PO SCH (20:45)
[2024-04-07] MEDS: Enoxaparin 120 MG/0.8 ML SYR SQ SCH (20:45)
[2024-04-07] MEDS ORDERED: APIXABAN 5 MG TABLET PO SCH (21:00)
[2024-04-07 23:18] LABS: Specific Gravity 1.012 (1.005-1.030); Urine Bilirubin NEGATIVE (Negative); Urine Blood Negative (Negative); Urine Clarity Clear (Clear); Urine Color Light-Yellow (Yellow); Urine Glucose NEGATIVE (Negative); Urine Ketones NEGATIVE (Negative); Urine Microscopic Reflex YN NO UMIC; Urine Nitrite NEGATIVE (Negative); Urine Protein NEGATIVE (Negative); Urine Urobilinogen 1+ (Normal)
[2024-04-08 00:03] LABS: INFLUENZA A NAA NEGATIVE (NEGATIVE); RESPIRATORY SYNCYTIAL VIR NAA NEGATIVE (NEGATIVE); SARS-COV-2 RT PCR NEGATIVE (NEGATIVE)
[2024-04-08 03:56] LABS: Hemoglobin 14.1 g/dL (13.6-17.9); MCH 32.9 pg (27.0-35.0); MCHC 32.8 g/dL (32.0-36.0); MCV 100.5 fL (80-100); MPV 9.7 fL (7.6-11.3); Platelets 156 thou/uL (152-406); RBC Red Blood Cell Count 4.28 M/uL (4.33-5.43); Red Cell Distribution Width 14.9 % (12.1-15.2)
[2024-04-08 04:06] LABS: Anion Gap 4.7 mEq/L (5.0-15.0); Potassium 4.7 mEq/L (3.5-5.1)
[2024-04-08] MEDS ORDERED: REGADENOSON 0.4 MG/5 ML SYR IV ONE (08:23)
[2024-04-08] MEDS: NA CHLORIDE 0.9% 500 ML IV ONE (08:41)
--- NOTE | 2024-04-08 09:48 | RAD REPORT ---
EXAM DESCRIPTION: NM - Rest Stress Cardiac Imaging - 04/08/2024 9:33 am CLINICAL HISTORY: NSTEMI Chest pain. COMPARISON: No comparisons TECHNIQUE: The patient was administered approximately 10mCi of Tc 99m Sestamibi prior to resting SPE CT imaging of the heart. The patient was then administered approximately 30 mCi of Tc 99m Sestamibi f ollowing exercise or pharmacologic stress. Multiplanar SPECT images were reviewed. FINDINGS: No stress induced ischemic defect is seen to suggest stress induced ischemia. No fixed def ect is seen to suggest hibernating myocardium or scarred myocardium. The end diastolic volume is 143 ml, the end systolic volume is 47 ml, and the ejection fraction is 67 %. IMPRESSION: No stress induced ischemia.
--- NOTE | 2024-04-08 13:26 | P.PN ---
Date of Service: 04/08/24 Subjective: Still with dyspnea on exertion denies chest pain No acute events overnight Still needing nasal cannula 02 ROS: 10 point ROS as noted above, otherwise negative Physical exam GEN: Alert, oriented, NAD HEENT: Normal conjunctiva, sclera anicteric CV: Regular rate and rhythm, no edema Pulm: Nonlabored respirations on nasal cannula ABD: Soft, nontender, nondistended MSK: No joint tenderness Integumentary: No rashes Neuro: Normal speech, normal affect Vitals reviewed Assessment and plan Possible Acute on chronic CHF possibly systolic/diastolic NSTEMI Monitor closely on telemetry Started on diuresis-edema improving X-ray findings consistent with CHF-repeat chest x-ray in the morning Oxygen supplementation, wean as tolerated Cardiology following, echocardiogram ordered and pending Stress test 04/08 negative for stress-induced ischemia Troponins flat Will monitor telemetry Started on aspirin and statin EKG did not show any acute changes suggestive of ischemia Patient denies any chest pain Accelerated Hypertension Antihypertensives titrated Continue home medications and titrate as needed Hydralazine as needed History of atrial fibrillation Status post cardioversion a year ago Monitor closely on telemetry Continue eliquis Hyperlipidemia Continue statin VTE:Continue eliquis Code: Full Dispo: 24-48 hours Time Spent Managing Pts Care (In Minutes): 35
--- NOTE | 2024-04-08 13:35 | ECHO ---
HEIGHT: 5 ft 5 in WEIGHT: 250 lb 0 oz DATE OF STUDY: 04/08/[address]: Lucio Self DO 2-DIMENSIONAL: YES M.MODE: YES DOPPLER: YES COLOR FLOW: YES TDS: PORTABLE: YES DEFINITY: BUBBLE STUDY: DIAGNOSIS: CONGESTIVE HEART FAILURE CARDIAC HISTORY: CATHERIZATION: SURGERY: PROSTHETIC VALVE: PACEMAKER: MEASUREMENTS (cm) DIASTOLIC (NORMALS) SYSTOLIC (NORMALS) IVSd 1.2 (0.6-1.2) LA Diam 4.3 (1.9-4.0) LVEF 60-65% LVIDd 4.3 (3.5-5.7) LVIDs 2.5 (2.0-3.5) %FS 42% LVPWd 1.3 (0.6-1.2) Ao Diam 3.1 (2.0-3.7) 2 DIMENSIONAL ASSESSMENT: RIGHT ATRIUM: NORMAL LEFT ATRIUM: NORMAL RIGHT VENTRICLE: NORMAL LEFT VENTRICLE: NORMAL TRICUSPID VALVE: TRACE TRICUSPID REGURGITATION MITRAL VALVE: NORMAL PULMONIC VALVE: NORMAL AORTIC VALVE: NORMAL PERICARDIAL EFFUSION: NONE AORTIC ROOT: NORMAL LEFT VENTRICULAR WALL MOTION: NORMAL DOPPLER/COLOR FLOW: NORMAL COMMENTS: 1. NORMAL LEFT VENTRICULAR SYSTOLIC FUNCTION, EJECTION FRACTION 60-65%, NORMAL WALL MOTION 2. NORMAL DIASTOLIC FUCNTION 3. NORMAL FILLING PRESSURE (RIGHT ATRIUM 0-5 mmHg) TECHNOLOGIST: GABRIEL DALEY
--- NOTE | 2024-04-08 14:21 | TREADPHA ---
DX: NON ST ELEVATION MYOCARDIAL INFARCTION Date of Study: 04/08/2024 Ht: 5' 5 " Wt: 250 lb 0 oz Consulting Physician: VERONICA MEDICATIONS: TYLENOL, LOVENOX, LASIX, ZOFRAN, FLOMAX HISTORY: 78 YEAR OLD MALE WITH COMPLAINTS OF FATIGUE AND SHORTNESS OF BREATH. HISTORY OF HYPERTENSION, HYPERLIPIDEMIA, CONGESTIVE HEART FAILURE. PATIENT DENIES ALLERGIES TO MEDICATIONS. PHYSICIAL EXAMINATION: RESTING B.P.: 121/62 RESTING H.R.: 57 RESTING EKG: SINUS RHYTHM PROTOCOL: PHARMACOLOGIC EXERCISE TIME: 3:30 B.P. AT [facility] STRESS: 97/54 IMPRESSION: PATIENT'S BLOOD PRESSURE WAS 102/49. DR. MARTIN WAS NOTIFIED, ORDERS RECEIVED TO GIVE 500 ml 0.9 NORMAL SALINE BOLUS TIME ONE NOW, RECHECK BLOOD PRESSURE AND IF BLOOD PRESSURE COMES UP THEN CONTINUE WITH POINT OF CARE. LEXISCAN INJECTED. CARDIOLITE INJECTED - SEE NUCLEAR MEDICINE REPORT. OCCASIONAL PREMATURE VENTRICULAR COMPLEXES. NO SUPRAVENTRICULAR TACHYCARDIA, VENTRICULAR TACHYCARDIA, PREMATURE ATRIAL COMPLEXES NOTED. PATIENT DENIES CHEST PAIN.
--- NOTE | 2024-04-08 17:10 | P.PN ---
Subjective Date of Service: 04/08/24 Chief Complaint: SOB Subjective: No new changes, No C/O voiced, Tolerating diet, Ambulating, Improving Review of Systems 10-point ROS is otherwise unremarkable Physical Examination - Vital Signs Temperature: 97.7 F Blood Pressure: 135/64 Pulse: 61 Respirations: 18 Pulse Ox (%): 97 - Physical Exam General: Alert, In no apparent distress HEENT: Atraumatic, PERRLA, EOMI Neck: Supple, JVD not distended Respiratory: Clear to auscultation bilaterally, Normal air movement Cardiovascular: Regular rate/rhythm, Normal S1 S2 Gastrointestinal: Normal bowel sounds, No tenderness Musculoskeletal: No tenderness Integumentary: No rashes Neurological: Normal speech, Normal tone, Normal affect Lymphatics: No axilla or inguinal lymphadenopathy - Studies Medications List Reviewed: Yes Assessment And Plan - Current Problems (Diagnosis) (1) Atrial fibrillation Current Visit: Yes Status: Acute Plan: Patient is currently in sinus bradycardia, Please check patient home medications and update chart. Continue Eliquis. (2) HTN (hypertension) Current Visit: Yes Status: Acute Plan: BP is with in normal limit, will need home medications list as patient follow up with cardiology at [facility]. (3) Acute exacerbation of CHF (congestive heart failure) Current Visit: Yes Status: Acute Plan: Echo is done and shows normal systolic function with DD, normal filling pressure. Recommend switching Lasix to 20 mg po daily. (4) NSTEMI (non-ST elevated myocardial infarction) Current Visit: Yes Status: Acute Plan: Patient had a stress test done today that was negative for ischemia Most likely type 2 [place].
[2024-04-08] MEDS: APIXABAN 5 MG TABLET PO SCH (20:17)
[2024-04-09 04:15] LABS: Hematocrit 42.2 % (39.6-49.0); Hemoglobin 13.8 g/dL (13.6-17.9); MCHC 32.8 g/dL (32.0-36.0); MCV 100.5 fL (80-100); MPV 9.7 fL (7.6-11.3); Platelets 145 thou/uL (152-406); Red Cell Distribution Width 14.4 % (12.1-15.2)
[2024-04-09 04:32] LABS: Anion Gap 3.2 mEq/L (5.0-15.0); Potassium 4.2 mEq/L (3.5-5.1)
[2024-04-09] MEDS: FUROSEMIDE 20 MG TABLET PO SCH (08:46)
--- NOTE | 2024-04-09 09:20 | RAD REPORT ---
EXAM DESCRIPTION: RADChest Single View04/09/2024 5:47 am CLINICAL HISTORY: hypoxia COMPARISON: Chest Single View dated 04/06/2024 TECHNIQUE: Portable AP view of the chest. FINDINGS: Interval mild central interstitial prominence. Opacification in the left lingula, may refl ect atelectasis or prominence of the epicardial fat pad. No pneumothorax or effusion. The cardiomedi astinal contours are unremarkable. IMPRESSION: Interval improvement as above.
--- NOTE | 2024-04-09 11:11 | P.PN ---
Subjective Date of Service: 04/09/24 Chief Complaint: SOB Subjective: No new changes, No C/O voiced, Tolerating diet, Ambulating, Improving Review of Systems 10-point ROS is otherwise unremarkable Physical Examination - Vital Signs Temperature: 99.3 F Blood Pressure: 99/45 Pulse: 60 Respirations: 16 Pulse Ox (%): 92 - Physical Exam General: Alert, In no apparent distress HEENT: Atraumatic, PERRLA, EOMI Neck: Supple, JVD not distended Respiratory: Clear to auscultation bilaterally, Normal air movement Cardiovascular: Regular rate/rhythm, Normal S1 S2 Gastrointestinal: Normal bowel sounds, No tenderness Musculoskeletal: No tenderness Integumentary: No rashes Neurological: Normal speech, Normal tone, Normal affect Lymphatics: No axilla or inguinal lymphadenopathy - Studies Medications List Reviewed: Yes Assessment And Plan - Current Problems (Diagnosis) (1) Atrial fibrillation Current Visit: Yes Status: Acute Plan: Patient is currently in sinus bradycardia, Continue Eliquis. (2) HTN (hypertension) Current Visit: Yes Status: Acute Plan: BP is with in normal limit, follow up with cardiology at [place]. (3) Acute exacerbation of CHF (congestive heart failure) Current Visit: Yes Status: Acute Plan: Echo is done and shows normal systolic function with DD, normal filling pressure. continue Lasix 20 mg po daily. (4) NSTEMI (non-ST elevated myocardial infarction) Current Visit: Yes Status: Acute Plan: Patient had a stress test done today that was negative for ischemia Most likely type 2 [place].
[2024-04-09] MEDS: GUAIFENESIN 600 MG SA TAB PO ONE (12:23)
[2024-04-09 12:47] VITALS: O2SAT 93
--- NOTE | 2024-04-09 14:31 | P.DS ---
Admission Date: 04/07/24 Discharge Date: 04/09/24 Disposition: ROUTINE DISCHARGE Discharge Condition: GOOD Reason for Admission: SOB Consultations: CardiologyDr. Russell Brief History of Present Illness: 78 yrs old Male with past medical history of hypertension, hyperlipidemia, arthritis, atrial fibrillation, back pain, came in with shortness of breath which started 2 days ago and has been progressively getting worse associated with occasional cough which is nonproductive. Denies any fever or chills. Also complains of some lower extremity swelling. Denies any chest pain. Has shortness of breath even with minimal exertion. Denies any history of CAD or CHF. He had a history of atrial fibrillation status post cardioversion and is on blood thinners. Patient was assessed in the ER and is being admitted for further management . Hospital Course: Patient was admitted to the hospital for lower extremity edema, dyspnea, and mildly elevated troponin. He was diuresed with IV Lasix and evaluated by cardiology, nuclear stress test was performed which showed no stress-induced ischemia, echocardiogram was also performed which showed normal ejection fraction, normal wall motion and normal filling pressure. Troponins trended flat, patient was transition to oral Lasix at 20 mg daily and is tolerating this well. Patient still mildly hypoxic around 87% on room air but he is not at distress, he has been compliant with his anticoagulants for atrial fibrillation and a D- dimer was obtained which was negative. Repeat chest x-ray performed today 04/09 shows interval improvement from previous, patient is stable for discharge at this time but will need home oxygen for which he did qualify for and has been arranged. I discharge please continue your home medications as previously prescribed with the addition of the following new medication: Lasix 20 mg by mouth once daily Please follow-up with your primary care doctor 1 to 2 weeks Please also follow-up with cardiology-Dr. Russell in 1 to 2 weeks Assessment Acute diastolic congestive heart failure NSTEMI Accelerated Hypertension History of atrial fibrillation Hyperlipidemia Vital Signs/Physical Exam: Temp Pulse Resp BP Pulse Ox 98.5 F 61 20 127/54 L 94 04/09/24 12:00 04/09/24 12:00 04/09/24 12:00 04/09/24 12:04/09/24 12:00 General: Alert, In no apparent distress, Oriented x3 HEENT: Atraumatic, PERRLA Neck: Supple, JVD not distended Respiratory: Clear to auscultation bilaterally, Normal air movement, Other (On nasal cannula2 L) Cardiovascular: Regular rate/rhythm, Normal S1 S2 Gastrointestinal: Normal bowel sounds, No tenderness Musculoskeletal: No tenderness Integumentary: No rashes Neurological: Normal speech, Normal tone Laboratory Data at Discharge: WBC 5.80 thou/uL (4.3-10.9) 04/09/24 03:44 Hgb 13.8 g/dL (13.6-17.9) 04/09/24 03:44 Hct 42.2 % (39.6-49.0) 04/09/24 03:44 Plt Count 145 thou/uL (152-406) L 04/09/24 03:44 Sodium 135 mEq/L (136-145) L 04/09/24 03:44 Potassium 4.2 mEq/L (3.5-5.1) 04/09/24 03:44 BUN 30 mg/dL (7-18) H 04/09/24 03:44 Creatinine 0.88 mg/dL (0.70-1.30) 04/09/24 03:44 Glucose 105 mg/dL (74-106) 04/09/24 03:44 Total Bilirubin 0.7 mg/dL (0.2-1.0) 04/07/24 05:15 AST < 10 U/L (15-37) L 04/07/24 05:15 ALT 27 U/L (16-61) 04/07/24 05:15 Alkaline Phosphatase 49 U/L (45-117) 04/07/24 05:15 Home Medications: Furosemide [Lasix] 20 mg PO DAILY #30 tab 04/09/24 New Medications: Furosemide [Lasix] 20 mg PO DAILY #30 tab Physician Discharge Instructions: Patient was admitted to the hospital for lower extremity edema, dyspnea, and mildly elevated troponin. He was diuresed with IV Lasix and evaluated by cardiology, nuclear stress test was performed which showed no stress-induced ischemia, echocardiogram was also performed which showed normal ejection fraction, normal wall motion and normal filling pressure. Troponins trended flat, patient was transition to oral Lasix at 20 mg daily and is tolerating this well. Patient still mildly hypoxic around 87% on room air but he is not at distress, he has been compliant with his anticoagulants for atrial fibrillation and a D- dimer was obtained which was negative. Repeat chest x-ray performed today 04/09 shows interval improvement from previous, patient is stable for discharge at this time but will need home oxygen for which he did qualify for and has been arranged. I discharge please continue your home medications as previously prescribed with the addition of the following new medication: Lasix 20 mg by mouth once daily Please follow-up with your primary care doctor 1 to 2 weeks Please also follow-up with cardiology-Dr. Russell in 1 to 2 weeks Diet: AHA Activity: Ad flores Followup: Sarwat Russell MD [ACTIVE - CAN ADMIT] - 1-2 Weeks NONE,NONE [Primary Care Provider] - 1-2 Weeks Time spent managing pt's care (in minutes): 35
[2024-04-09 14:34] VITALS: BP 127/54; TEMP 98.5
== END 2024-04-09 15:40 | disposition home or self-care (01) | DRG 280 ==
LOC: ER 15:35 → ERHOLD 18:47 → 2ND 04-07 02:12 → OBSVTOIN 04-07 15:11
PROVIDERS: ADMIT Family Medicine; ATTEND Hospitalist
DX: I11.0 Hypertensive heart disease with heart failure (principal); I50.31 Acute diastolic (congestive) heart failure; I21.A1 Myocardial infarction type 2; R09.02 Hypoxemia; I48.91 Unspecified atrial fibrillation; Z79.01 Long term (current) use of anticoagulants; M19.90 Unspecified osteoarthritis, unspecified site; M54.9 Dorsalgia, unspecified; E78.5 Hyperlipidemia, unspecified
CPT/HCPCS: 0241U; 36415; 71045; 78452; 80048; 80053; 81003; 83880; 84484; 85025; 85027; 85379; 93005; 93017; 93306; 94760; 94762; 96372; 99285; A9500; G0378; J1650; J1940; J2785; J7040